=== PATIENT | female | born 1995 | race African-American/Black ===

== ENCOUNTER 2016-10-13 16:13 | Inpatient (IN) | payer OTHER ==
--- NOTE | ~2016-10-13 | PA ---
Unit #: [id number] #: [id number] Patient: JOVITA CORONADO [id number] [facility] [address] [place] [address] [id number] I MR#: [id number] NAME: JOVITA CORONADO ROOM: P122 Age: 21 Sex: F Admission Date: 10/13/2016 : 1995 Date of Assessment: 10/14/2016 Attending Physician: Satinder Berrios M.D. Admitting Physician: Satinder Berrios M.D. Primary Care Physician: Primary Care Physician No PSYCHIATRIC ASSESSMENT IDENTIFYING INFORMATION The patient is a 21-year-old female admitted to the [address] [place] [address] reporting positive suicidal ideation. CHIEF COMPLAINT None given. INFORMANT(S) Patient and chart, reliability good. HISTORY OF PRESENT ILLNESS The patient is a 21-year-old female admitted to the [address] [place] [address] after she had presented to this facility reporting that she was having "bad thoughts." The patient reports that she had been prescribed medications through the auspices of [facility] including Abilify, clonidine, Zoloft, and Lamictal, but has been noncompliant with them for several months. The patient reports that she has been hearing voices and having thoughts of suicide. She reports that she had "had a plan" but has forgotten it. The patient denies abuse of any psychoactive substances. She does report that she is currently homeless and is feeling hopelessness related thereto. The patient does have a history of one previous suicide attempt at the age of 16 wherein she took an overdose of Tylenol. The patient had reported suicidal ideation at the time of admission, telling her to walk into traffic and had reported positive command hallucinations telling her to harm herself. She had also disclosed that she had made some superficial cuts on herself yesterday. The patient denied any homicidal ideation. She denies recent changes in sleep or appetite. PAST PSYCHIATRIC HISTORY As above. PAST MEDICAL HISTORY Significant for history of obesity. MEDICATIONS Abilify, clonidine, Zoloft, and Lamictal. ALLERGIES None. FAMILY HISTORY Noncontributory. Unit #: [id number] #: [id number] Patient: JOVITA CORONADO SOCIAL HISTORY The patient is currently homeless. She denies use of any psychoactive substances. Her tox screen was negative. MENTAL STATUS EXAMINATION Examination at this time reveals the patient to be an obese female appearing her stated age. She arouses without difficulty. She is awake, alert, and oriented in all spheres. Her mood is dysphoric, her affect blunted. Speech is a bit evasive, but generally well coherent. There are no gross deficits in memory or cognition noted. Intelligence is judged to be in the average range based on fund of knowledge. The patient is generally cooperative throughout the interview. She is currently endorsing positive suicidal ideation as well as positive auditory hallucinations of a command type. Judgment and insight appear to be significantly impaired. ASSETS AND LIABILITIES The patient's assets are to be assessed. Liabilities: Lack of resources. DIAGNOSTIC IMPRESSION Major depressive disorder, severe, recurrent with psychotic features versus bipolar disorder depressed phase. TREATMENT PLAN The patient remains hospitalized for safety and stabilization. We will begin reinitiation of her previously prescribed medications including Abilify which has been initiated at 15 mg nightly, Zoloft 100 mg nightly for depression, and Lamictal 25 mg daily for mood stabilization. The patient will participate in appropriate order of milieu activities, and suicide precautions remain in place. ESTIMATED LENGTH OF STAY 5 to 7 days. Dictated by... Satinder Berrios M.D. ISRA/vijaya TD: 10/14/2016 12:22 JOB #: [id number] PSYCHIATRIC ASSESSMENT Page 1 of 1 X Satinder Berrios MD X PSYCHIATRIC ASSESSMENT
--- NOTE | ~2016-10-13 | DS ---
Unit #: [id number] #: [id number] Patient: JOVITA CORONADO [id number] [place] [address] [id number] I MR#: [id number] NAME: JOVITA CORONADO ROOM: [facility] Age: 21 Sex: F Admission Date: 10/13/2016 : 1995 Discharge Date: 10/16/2016 Attending Physician: Satinder Berrios M.D. Primary Care Physician: Primary Care Physician No DISCHARGE SUMMARY REASON FOR ADMISSION The patient is a 21-year-old female with a history of schizoaffective disorder, admitted following a period of medication noncompliance. HOSPITAL COURSE The patient was admitted to the [address] [place] [address] unit and restarted on previously prescribed medications including Abilify 15 mg at bedtime, Zoloft 100 mg at bedtime, and Lamictal 25 mg daily. She tolerated re-initiation of medications without complaint and improved remarkably during her brief stay in the hospital. By 10/16/2016, the patient was agreeable with plan for discharge with followup to take place in the intensive outpatient program provided by this facility and as per her request, discharge was ordered. FINAL DIAGNOSIS Schizoaffective disorder. DISPOSITION ON DISCHARGE The patient is discharged on the following medications: Abilify 15 mg at bedtime for mood stabilization and psychosis; Zoloft 100 mg daily for depression; Lamictal 25 mg at bedtime x14 days, then 50 mg x14 days, then 100 mg at h.s. for mood stabilization. DISCHARGE INSTRUCTIONS No dietary or physical restrictions were placed upon the patient at the time of discharge. FOLLOWUP Followup will take place through the auspices of the intensive outpatient program provided by this facility. PROGNOSIS The patient's prognosis is considered fair. Dictated by... Satinder Berrios M.D. CB/james TD: 10/17/2016 03:09 Unit #: [id number] #: [id number] Patient: JOVITA CORONADO JOB #: [id number] DISCHARGE SUMMARY Page 1 of 1 X Satinder Berrios MD X DISCHARGE SUMMARY
--- NOTE | ~2016-10-13 | HP ---
Unit #: [id number] #: [id number] Patient: JOVITA CORONADO [id number] [place] [address] [id number] I MR#: [id number] NAME: JOVITA CORONADO ROOM: P122 Age: 21 Sex: F Admission Date: 10/13/2016 : 1995 Attending Physician: Satinder Berrios M.D. Admitting Physician: Satinder Berrios M.D. Primary Care Physician: Primary Care Physician No HISTORY AND PHYSICAL HISTORY OF PRESENT ILLNESS The patient is a 21-year-old female admitted to [facility] on 10/13/2016 for auditory hallucinations and suicidal ideations. PAST MEDICAL HISTORY Obesity PAST SURGICAL HISTORY Tonsillectomy SOCIAL She is disabled and homeless. She denies alcohol, tobacco and drug use. FAMILY MEDICAL HISTORY Noncontributory. ALLERGIES No known drug allergies. CURRENT MEDICATIONS Include Abilify, clonidine, Zoloft and Lamictal. REVIEW OF SYSTEMS CONSTITUTIONAL: No fever or chills. HEENT: Denies any sore throat, ear pain or runny nose. CARDIOVASCULAR: Denies chest pain, irregular heart rhythm or palpitations. CHEST: Denies shortness of breath or cough. No hemoptysis. GASTROINTESTINAL: Denies nausea, vomiting, diarrhea or chronic constipation. ENDOCRINE: Denies history of increased thirst or urination. No recent significant weight loss or gain. GENITOURINARY: Denies dysuria, frequency, or hematuria. SKIN: Denies any rashes. HEMATOLOGIC: Denies history of increased bleeding or bruising. MUSCULOSKELETAL: Denies any hot, swollen joints. No generalized muscle pain. NEUROLOGIC: Denies problems with vision or speech. No frequent, severe headaches. No numbness, tingling or weakness in any extremities. Denies loss of bladder or bowel control. PHYSICAL EXAM GENERAL: She is awake, alert and oriented in no acute distress. Unit #: [id number] #: [id number] Patient: JOVITA CORONADO VITAL SIGNS: Temperature 98.4, heart rate 81, respiration 16, blood pressure 151/83. HEIGHT: 5'4". WEIGHT: 243 pounds. SKIN: Warm and dry without rash or lesion. HEENT: Normocephalic. TMs not viewed. Oral and nasal passages clear. Conjunctivae clear. PERRLA. EOMs intact. NECK: Supple without lymphadenopathy or thyromegaly. HEART: Regular rate and rhythm without murmur. LUNGS: Clear. ABDOMEN: Soft, nontender. : Not done. EXTREMITIES: No evidence of cyanosis, clubbing or edema. Moves all without focal deficit. NEUROLOGICAL: Grossly within normal limits. Cranial Nerves: II: Visual mohan are intact. III, IV AND : Extraocular movements are intact. Pupils are equal, round and reactive to light. V: Facial sensation is grossly normal. VII: Facial movements and expression are normal. VIII: Auditory acuity grossly intact. IX, X: Uvula is midline. Phonation is normal. XI: Patient shrugs shoulders and turns head normally. XII: Tongue protrudes in the midline. Sensory and Motor Function: Sensory and motor sensation is grossly normal. Motor: moves all extremities well. IMPRESSION 1. Psychiatric admission. 2. Obesity. RECOMMENDATIONS Psychiatric per psychiatrist. MEDICAL: No contraindication to participate in facility activities. MEDICAL PROGNOSIS Good. MEDICAL CONDITION Stable. Dictated by... Seun Álvarez/connie TD: 10/15/2016 20:34 JOB #: [id number] Unit #: [id number] #: [id number] Patient: JOVITA CORONADO HISTORY AND PHYSICAL Page 1 of 1 X BILL NEWMAN APRN HISTORY AND PHYSICAL
--- NOTE | ~2016-10-13 | PN ---
Unit #: [id number] #: [id number] Patient: JOVITA CORONADO [id number] [facility] [address] [place] [address] [id number] I MR#: [id number] NAME: JOVITA CORONADO ROOM: P122 Age: 21 Sex: F Admission Date: 10/13/2016 : 1995 Attending Physician: Satinder Berrios M.D. Admitting Physician: Satinder Berrios M.D. Primary Care Physician: Primary Care Physician Estelle BOOKER PROGRESS NOTES DATE 10/15/2016 DISCUSSION The patient seems much brighter today though she is complaining of some nausea with reinitiation of her prescribed medications most likely the Abilify. I have ordered some p.r.sarahi Whitleyan to address that symptoms and should she sustain progress discharge should take place as early as tomorrow. Dictated by... Satinder Berrios M.D. CB/connie TD: 10/16/2016 01:28 JOB #: [id number] [facility] PROGRESS NOTES Page 1 of 1 X Satinder Berrios MD X PROGRESS NOTE
[~2016-10-13 16:13] MED LIST: FLONASE 0.05% N16 GM; PROMETHAZINE-D473 ML PO; ZYRTEC10 M2 PO
[2016-10-14 11:57] LABS: BASOPHIL% 0.5 % (0-2.5); EOSINOPHIL# 0.5 X10e3 (0-0.7); EOSINOPHIL% 6.2 % (0.0-7.0); HEMATOCRIT 40.5 % (35.0-45.0); HEMOGLOBIN 12.9 gm/dL (12.0-16.0); LYMPHOCYTE# 3.8 X10e3 (1.0-3.5); LYMPHOCYTE% 43.9 % (17.0-45.0); MEAN CELL VOLUME 94.2 FL (83-96); MEAN CORPUSCULAR HGB CONC 31.9 g/dL (30-36); MONOCYTE# 0.6 X10e3 (0-1.0); MONOCYTE% 7.4 % (3.0-12.0); NEUTROPHIL# 3.6 X10e3 (1.5-7.1); PLATELET COUNT 234 X10e3 (140-420); RED BLOOD COUNT 4.29 X10e (3.90-5.30); RED CELL DISTRIBUTION WIDTH 12.7 % (11.0-15.5); WHITE BLOOD COUNT 8.7 X10e3 (4.0-10.5)
[2016-10-14 11:59] LABS: DIFF IND NO
[2016-10-14 12:27] LABS: ALBUMIN SERUM 3.5 g/dL (3.5-5.0); BILIRUBIN,TOTAL 0.6 mg/dL (0.2-2.0); BUN/CREATININE RATIO 16.25; CALCIUM SERUM 9.1 mg/dL (8.4-10.2); CREATININE SERUM 0.8 mg/dL (0.6-1.4); GLOM FILT RATE Estimated 122.3 mL/min (>60); POTASSIUM 4.3 mmol/L (3.5-5.1); PROTEIN TOTAL SERUM 6.2 g/dL (6.0-8.3)
== END 2016-10-16 15:46 | disposition home or self-care (01) | DRG 885 ==
LOC: P1S 17:57
PROVIDERS: Specialist
DX: F33.3 Major depressive disorder, recurrent, severe with psychotic symptoms (principal); R45.851 Suicidal ideations; Z91.14 Patient's other noncompliance with medication regimen; E66.9 Obesity, unspecified; Z59.0 Homelessness
CPT/HCPCS: 80053; 85025